=== PATIENT | female | born 2000 | race African-American/Black ===

== ENCOUNTER 2022-04-20 08:49 | Emergency (ER) | payer OTHER ==
[~2022-04-20] VITALS: Ht 167.6 cm; Wt 97.3 kg
[2022-04-20 09:30] VITALS: BP 143/98
[2022-04-20] MEDS ORDERED: KETOROLAC TROMETH 60MG/2ML VIAL IM ONE (09:45)
[2022-04-20] MEDS ORDERED: IBUP800T27 PO (10:13)
[2022-04-20] MEDS ORDERED: PRED20TA2 PO (10:13)
== END 2022-04-20 10:31 | disposition home or self-care (01) ==
LOC: ER 08:57
DX: G43.909 Migraine, unspecified, not intractable, without status migrainosus (principal); R09.81 Nasal congestion; F12.90 Cannabis use, unspecified, uncomplicated; Z98.890 Other specified postprocedural states
CPT/HCPCS: 96372; 99283; J1885